=== PATIENT | female | born 1945 | race Asian ===

== ENCOUNTER → 2016-04-02 | Outpatient (CLI) | payer OTHER ==
[~2016-04-02] MED LIST: AMBIEN5 MG PO; CENTRUM SILVER1 EAC1 PO; CLARITIN10 MG PO; FOSAMAX70 MG PO; GAS-X ULTRA ST180 MG PO; KEFLEX500 MG PO; LEXAPRO10 MG PO; LISINOPRIL/HCTZ1 TA3 PO; MEDROL DOSEPAK4 MG PO; OXYCODONE5 M1 PO; PRILOSEC20 MG PO; VITAMIN D2000 IU PO; ZOFRAN4 MG PO
[2016-04-02 15:13] LABS: HEMATOCRIT 38.8 % (37.0-47.0); HEMOGLOBIN 13.2 g/dl (12.0-16.0); MEAN CELL VOLUME 83.1 fl (81.0-99.0); MEAN CORPUSCULAR HGB 28.3 pg (27.0-31.0); MEAN PLATELET VOLUME 11.1 fl (9.6-12.3); PLATELET COUNT AUTOMATED 106 10*3/uL (130-400); RED BLOOD COUNT 4.67 10*6/uL (4.10-5.10); RED CELL DISTRI WIDTH 15.2 % (0-14.5); WHITE BLOOD COUNT 15.5 10*3/uL (4.8-10.8)
[2016-04-02 15:43] LABS: ALBUMIN 2.2 gm/dl (3.1-4.5); ALKALINE PHOSPHATASE 213 U/L (45-117); BILIRUBIN, TOTAL 2.6 mg/dl (0.2-1.0); BUN 14 mg/dl (7-24); CARBON DIOXIDE 29 mmol/L (21-32); CHLORIDE 93 mmol/L (98-107); EST GLOM FILT AFRICAN AMERICAN > 60 ml/min; GLUCOSE 126 mg/dL (65-99); MAGNESIUM 2.2 mg/dL (1.5-2.1); PHOSPHOROUS 2.3 mg/dL (2.5-4.9); POTASSIUM 3.7 mmol/L (3.5-5.1); SGOT/AST 230 IU/L (3-35); SGPT/ALT 83 U/L (12-78); SODIUM 131 mmol/L (136-145); TOTAL PROTEIN 6.1 gm/dL (6.4-8.2)
[2016-04-02 16:16] LABS: LYMPHOCYTE # 0.5 10*3/uL (1.3-4.4); MONOCYTE # 1.6 10*3/uL (0.1-1.0); NEUTROPHIL # 13.5 10*3/uL (2.3-7.9); NEUTROPHILS 87 % (47-73); TOTAL CELLS COUNTED 100 #CELLS
[2016-04-02 16:18] LABS: PLATELET SUFFICIENCY LOW (NORMAL)
== END | disposition home or self-care (01) ==
LOC: LAB 14:21
PROVIDERS: Surgery Surgical Oncology
DX: C22.0 Liver cell carcinoma (principal); E83.42 Hypomagnesemia; E83.39 Other disorders of phosphorus metabolism; N17.9 Acute kidney failure, unspecified; D64.9 Anemia, unspecified

== ENCOUNTER → 2016-05-28 | Outpatient (CLI) | payer OTHER ==
[2016-05-28 09:00] LABS: BASO % 0.5 % (0.0-1.0); EOS % 0.7 % (1.0-4.0); HEMATOCRIT 42.2 % (37.0-47.0); HEMOGLOBIN 14.4 g/dl (12.0-16.0); LYMPH # 0.8 10*3/uL (1.3-4.4); LYMPH % 13.7 % (27.0-41.0); MEAN CELL VOLUME 83.9 fl (81.0-99.0); MEAN CORPUSCULAR HGB 28.6 pg (27.0-31.0); MEAN CORPUSCULAR HGB CONC 34.1 g/dl (33.0-37.0); MEAN PLATELET VOLUME 10.4 fl (9.6-12.3); MONO # 0.7 10*3/uL (0.1-1.0); MONO % 13.5 % (3.0-9.0); NEUT # 3.9 10*3/uL (2.3-7.9); NEUT % 71.4 % (47.0-73.0); PLATELET COUNT AUTOMATED 143 10*3/uL (130-400); RED BLOOD COUNT 5.03 10*6/uL (4.10-5.10); RED CELL DISTRI WIDTH 19.5 % (0-14.5); WHITE BLOOD COUNT 5.5 10*3/uL (4.8-10.8)
[2016-05-28 09:23] LABS: ALBUMIN 2.6 gm/dl (3.1-4.5); BILIRUBIN, TOTAL 1.9 mg/dl (0.2-1.0); BUN 13 mg/dl (7-24); CARBON DIOXIDE 28 mmol/L (21-32); CHLORIDE 94 mmol/L (98-107); EST GLOM FILT AFRICAN AMERICAN > 60 ml/min; GLUCOSE 124 mg/dL (65-99); MAGNESIUM 1.9 mg/dL (1.5-2.1); PHOSPHOROUS 3.4 mg/dL (2.5-4.9); POTASSIUM 3.9 mmol/L (3.5-5.1); SGOT/AST 192 IU/L (3-35); SGPT/ALT 78 U/L (12-78); SODIUM 131 mmol/L (136-145); TOTAL PROTEIN 7.7 gm/dL (6.4-8.2)
[2016-05-28 09:26] LABS: ALKALINE PHOSPHATASE 282 U/L (45-117)
== END | disposition home or self-care (01) ==
LOC: LAB 08:36
PROVIDERS: Internal Medicine Hematology & Oncology
DX: C22.0 Liver cell carcinoma (principal); N17.9 Acute kidney failure, unspecified; D64.9 Anemia, unspecified; K76.9 Liver disease, unspecified; K74.60 Unspecified cirrhosis of liver; B18.1 Chronic viral hepatitis B without delta-agent; E83.42 Hypomagnesemia; E83.39 Other disorders of phosphorus metabolism

== ENCOUNTER → 2016-06-04 | Outpatient (CLI) | payer OTHER ==
[2016-06-04 09:25] LABS: BASO % 0.6 % (0.0-1.0); EOS # 0.1 10*3/uL (0.0-0.4); EOS % 1.6 % (1.0-4.0); HEMATOCRIT 45.8 % (37.0-47.0); HEMOGLOBIN 15.3 g/dl (12.0-16.0); LYMPH # 0.8 10*3/uL (1.3-4.4); LYMPH % 15.2 % (27.0-41.0); MEAN CELL VOLUME 85.6 fl (81.0-99.0); MEAN CORPUSCULAR HGB 28.6 pg (27.0-31.0); MEAN CORPUSCULAR HGB CONC 33.4 g/dl (33.0-37.0); MEAN PLATELET VOLUME 10.1 fl (9.6-12.3); MONO # 0.7 10*3/uL (0.1-1.0); NEUT # 3.3 10*3/uL (2.3-7.9); NEUT % 67.2 % (47.0-73.0); PLATELET COUNT AUTOMATED 144 10*3/uL (130-400); RED BLOOD COUNT 5.35 10*6/uL (4.10-5.10); RED CELL DISTRI WIDTH 19.9 % (0-14.5); WHITE BLOOD COUNT 4.9 10*3/uL (4.8-10.8)
[2016-06-04 09:51] LABS: ALBUMIN 2.4 gm/dl (3.1-4.5); ALKALINE PHOSPHATASE 306 U/L (45-117); BUN 12 mg/dl (7-24); CARBON DIOXIDE 28 mmol/L (21-32); CHLORIDE 95 mmol/L (98-107); EST GLOM FILT AFRICAN AMERICAN > 60 ml/min; GLUCOSE 118 mg/dL (65-99); MAGNESIUM 1.9 mg/dL (1.5-2.1); PHOSPHOROUS 3.2 mg/dL (2.5-4.9); POTASSIUM 4.2 mmol/L (3.5-5.1); SGOT/AST 188 IU/L (3-35); SGPT/ALT 87 U/L (12-78); SODIUM 133 mmol/L (136-145); TOTAL PROTEIN 8.1 gm/dL (6.4-8.2)
== END | disposition home or self-care (01) ==
LOC: LAB 08:52
PROVIDERS: Physician Assistant Medical
DX: C22.0 Liver cell carcinoma (principal); N17.9 Acute kidney failure, unspecified; E83.42 Hypomagnesemia; E83.39 Other disorders of phosphorus metabolism; D64.9 Anemia, unspecified

== ENCOUNTER → 2016-06-11 | Outpatient (CLI) | payer OTHER ==
[2016-06-11 09:03] LABS: BASO % 0.5 % (0.0-1.0); EOS # 0.1 10*3/uL (0.0-0.4); EOS % 0.8 % (1.0-4.0); HEMOGLOBIN 15.7 g/dl (12.0-16.0); LYMPH # 0.6 10*3/uL (1.3-4.4); LYMPH % 10.8 % (27.0-41.0); MEAN CELL VOLUME 85.8 fl (81.0-99.0); MEAN CORPUSCULAR HGB 28.6 pg (27.0-31.0); MEAN CORPUSCULAR HGB CONC 33.4 g/dl (33.0-37.0); MONO # 0.7 10*3/uL (0.1-1.0); MONO % 12.1 % (3.0-9.0); NEUT # 4.5 10*3/uL (2.3-7.9); NEUT % 75.5 % (47.0-73.0); PLATELET COUNT AUTOMATED 156 10*3/uL (130-400); RED BLOOD COUNT 5.48 10*6/uL (4.10-5.10); RED CELL DISTRI WIDTH 19.8 % (0-14.5); WHITE BLOOD COUNT 5.9 10*3/uL (4.8-10.8)
[2016-06-11 09:36] LABS: ALBUMIN 2.3 gm/dl (3.1-4.5); BILIRUBIN, TOTAL 2.2 mg/dl (0.2-1.0); BUN 16 mg/dl (7-24); CARBON DIOXIDE 27 mmol/L (21-32); CHLORIDE 96 mmol/L (98-107); EST GLOM FILT AFRICAN AMERICAN > 60 ml/min; GLUCOSE 127 mg/dL (65-99); MAGNESIUM 1.8 mg/dL (1.5-2.1); PHOSPHOROUS 2.8 mg/dL (2.5-4.9); POTASSIUM 4.1 mmol/L (3.5-5.1); SGOT/AST 203 IU/L (3-35); SGPT/ALT 86 U/L (12-78); SODIUM 133 mmol/L (136-145); TOTAL PROTEIN 7.6 gm/dL (6.4-8.2)
[2016-06-11 10:14] LABS: ALKALINE PHOSPHATASE 324 U/L (45-117)
== END | disposition home or self-care (01) ==
LOC: LAB 08:28
PROVIDERS: Physician Assistant Medical
DX: C22.0 Liver cell carcinoma (principal); E83.42 Hypomagnesemia; E83.39 Other disorders of phosphorus metabolism; N17.9 Acute kidney failure, unspecified; D64.9 Anemia, unspecified

== ENCOUNTER 2016-06-14 22:06 | Inpatient (IN) | payer OTHER ==
[~2016-06-14] VITALS: Ht 152.4 cm; Wt 52.6 kg
--- NOTE | ~2016-06-14 | CON ---
[place], [place] REPORT OF CONSULTATION NAME: [facility]EN [facility]ULUAGA [facility]: [id number] UNIT #: [id number] ROOM: 407 DOCTOR[facility] BIRTHDATE[facility] [birth year] DOS: 06/15/2016 HISTORY OF PRESENT ILLNESS: The patient has presented with apparent history of hepatitis B, many decades ago known. The patient apparently developed a large mass in the liver, apparently diagnosed as carcinoma, details pathologically are not available to us. However, she has undergone radiation oncologic management seed implant, also chemotherapy through Dr. Carlos. She has developed ascites fluid, paracentesis multisession has been performed, about 3000 mL collectively has been removed. Her sonographic study of the liver does not show solid mass except a small hemangioma in the liver, nodular liver with cirrhosis is already an established diagnosis. The patient has been doing well. PAST MEDICAL HISTORY: Cirrhosis, ascites, pleural effusion, history of hepatitis C, hypertension, liver CA, protein malnutrition. PAST SURGICAL HISTORY: Bilateral hip prosthesis. SOCIAL HISTORY: Nonsmoker, nonalcohol consumer. FAMILY HISTORY: Noncontributory. ALLERGIES: No known medication. MEDICATIONS: List is known. REVIEW OF SYSTEMS: No hematemesis. No shortness of breath, no chest pain. Digestive system, no acute diarrhea, constipation or concern except liver CA, detail is not known. PHYSICAL EXAMINATION: VITAL SIGNS: Frail patient. HEENT: Head normocephalic, nontraumatic. Mouth and buccal mucosa benign. NECK: Supple, no thyromegaly. CHEST: Symmetric anatomy, equal expansion. HEART: Normal sinus rhythm. No gallop, no murmur. ABDOMEN: Soft. No hepato-organomegaly. No pulsatile mass. No rebound tenderness. EXTREMITIES: No cyanosis. No pedal edema. NEUROLOGIC: Alert and oriented to time, place and person. IMPRESSION: History of liver CA, status post seed implant, status-post chemotherapy, history of hepatitis B, underlying disease, ascites, paracentesis, possible portal hypertension as well as known systemic hypertension. PLAN AND DISCUSSION: As far as hyperammonemia is concerned, she deserves to be on a dose of lactulose of 30 grams a day to assure we keep the serum ammonia under check and not to allow that to increase to a point where she becomes encephalopathic, otherwise curiosity of finding old records to see what kind of tissue diagnosis she has. If we know that truly the size of the mass how large it has been compared to the present time, which is nil clinical [place], [place] REPORT OF CONSULTATION NAME: KEN ZULUAGA UNIT #: [id number] ROOM: 407 DOCTOR: LINDA RAI,MODE BIRTHDATE: [birth year] significant response otherwise. The patient's diet to remain on low salt. Activity as tolerated. Retrospectively, we have found on the old records a 9.1 heterogenous mass in the inferior right hepatic lobe, which is old and belong to the date February 16, 2016, which at the present time has not been reported in the sonogram unless we have a comparative CT to compare that day with today's data. We are going to do that in here. Thank you very much indeed. Sincerely, MODE MCKEON MD CM:CONSTR:REPORT OF CONSULTATION 1640 06/16/16 0941 interface
[2016-06-14 22:14] VITALS: BP 113/64
[2016-06-14 22:31] VITALS: BP 125/68
[2016-06-14 22:54] LABS: BASO % 0.3 % (0.0-1.0); EOS % 0.5 % (1.0-4.0); HEMATOCRIT 43.7 % (37.0-47.0); HEMOGLOBIN 14.9 g/dl (12.0-16.0); LYMPH # 0.7 10*3/uL (1.3-4.4); LYMPH % 8.7 % (27.0-41.0); MEAN CELL VOLUME 85.5 fl (81.0-99.0); MEAN CORPUSCULAR HGB 29.2 pg (27.0-31.0); MEAN CORPUSCULAR HGB CONC 34.1 g/dl (33.0-37.0); MEAN PLATELET VOLUME 9.9 fl (9.6-12.3); MONO % 12.8 % (3.0-9.0); NEUT # 6.1 10*3/uL (2.3-7.9); NEUT % 77.4 % (47.0-73.0); PLATELET COUNT AUTOMATED 135 10*3/uL (130-400); RED BLOOD COUNT 5.11 10*6/uL (4.10-5.10); WHITE BLOOD COUNT 7.8 10*3/uL (4.8-10.8)
[2016-06-14 23:04] LABS: INTERNATIONAL NORM RATIO 1.2 (2.0-3.5); PROTHROMBIN TIME 12.5 SECONDS (9.0-12.4)
[2016-06-14 23:11] LABS: ALBUMIN 2.2 gm/dl (3.1-4.5); ALKALINE PHOSPHATASE 309 U/L (45-117); BILIRUBIN, TOTAL 2.4 mg/dl (0.2-1.0); BUN 18 mg/dl (7-24); C-REACTIVE PROTEIN 3.84 MG/DL (0-0.3); CARBON DIOXIDE 22 mmol/L (21-32); CHLORIDE 98 mmol/L (98-107); CKMB 1.1 ng/ml (0.5-3.6); CPK 35 U/L (26-192); EST GLOM FILT AFRICAN AMERICAN > 60 ml/min; GLUCOSE 96 mg/dL (65-99); MAGNESIUM 1.9 mg/dL (1.5-2.1); SGOT/AST 216 IU/L (3-35); SGPT/ALT 82 U/L (12-78); SODIUM 130 mmol/L (136-145); TOTAL PROTEIN 7.2 gm/dL (6.4-8.2)
[2016-06-14 23:14] LABS: TROPONIN I < 0.015 ng/ml (<0.045)
[2016-06-14 23:57] VITALS: BP 124/68
[2016-06-15] VITALS (7 sets, daily range): BP systolic 92–133; BP diastolic 60–76
[2016-06-15 00:10] LABS: BILIRUBIN 1+ (NEGATIVE); BLOOD NEGATIVE (NEGATIVE); CLARITY SL CLOUDY (CLEAR); COLOR YELLOW (YELLOW); GLUCOSE NEGATIVE (NEGATIVE); KETONE 1+ (NEGATIVE); LEUKO ESTERASE NEGATIVE (NEGATIVE); NITRITE POSITIVE (NEGATIVE); PH 6.5 (5.0-9.0); PROTEIN TRACE (NEGATIVE)
[2016-06-15 00:17] LABS: BACTERIA 4+; URINE REFLEX COMMENT YES (NO)
[2016-06-15 06:12] LABS: BASO % 0.5 % (0.0-1.0); EOS # 0.1 10*3/uL (0.0-0.4); EOS % 0.9 % (1.0-4.0); HEMATOCRIT 45.4 % (37.0-47.0); HEMOGLOBIN 15.5 g/dl (12.0-16.0); LYMPH # 1.1 10*3/uL (1.3-4.4); LYMPH % 13.1 % (27.0-41.0); MEAN CORPUSCULAR HGB CONC 34.1 g/dl (33.0-37.0); MEAN PLATELET VOLUME 10.5 fl (9.6-12.3); NEUT # 6.5 10*3/uL (2.3-7.9); PLATELET COUNT AUTOMATED 157 10*3/uL (130-400); RED BLOOD COUNT 5.34 10*6/uL (4.10-5.10); RED CELL DISTRI WIDTH 20.1 % (0-14.5); WHITE BLOOD COUNT 8.7 10*3/uL (4.8-10.8)
[2016-06-15 06:40] LABS: ALBUMIN 2.3 gm/dl (3.1-4.5); ALKALINE PHOSPHATASE 308 U/L (45-117); BILIRUBIN, TOTAL 2.5 mg/dl (0.2-1.0); BUN 17 mg/dl (7-24); CARBON DIOXIDE 23 mmol/L (21-32); CHLORIDE 97 mmol/L (98-107); EST GLOM FILT AFRICAN AMERICAN > 60 ml/min; FREE T4 1.72 ng/dl (0.76-1.46); GLUCOSE 79 mg/dL (65-99); MAGNESIUM 1.8 mg/dL (1.5-2.1); PHOSPHOROUS 3.4 mg/dL (2.5-4.9); POTASSIUM 3.7 mmol/L (3.5-5.1); SGOT/AST 209 IU/L (3-35); SGPT/ALT 83 U/L (12-78); SODIUM 131 mmol/L (136-145); TOTAL PROTEIN 7.3 gm/dL (6.4-8.2)
[2016-06-15 06:46] LABS: INTERNATIONAL NORM RATIO 1.2 (2.0-3.5); PROTHROMBIN TIME 12.3 SECONDS (9.0-12.4)
[2016-06-15 07:11] LABS: HEMOGLOBIN A1c 5.3 % (4.8-5.6)
[2016-06-15 09:25] LABS: FOLIC ACID 14.54 ng/mL (>5.38)
[2016-06-15] MEDS ORDERED: ALDACTONE50 M1 PO (09:28)
[2016-06-16] VITALS: BP 114/66
[2016-06-16 07:20] LABS: ALBUMIN 3.6 gm/dl (3.1-4.5); BUN 21 mg/dl (7-24); CARBON DIOXIDE 26 mmol/L (21-32); CHLORIDE 94 mmol/L (98-107); EST GLOM FILT AFRICAN AMERICAN > 60 ml/min; GLUCOSE 120 mg/dL (65-99); POTASSIUM 3.7 mmol/L (3.5-5.1); SGOT/AST 175 IU/L (3-35); SGPT/ALT 71 U/L (12-78); SODIUM 130 mmol/L (136-145)
[2016-06-16 07:22] LABS: ALKALINE PHOSPHATASE 260 U/L (45-117); BILIRUBIN, TOTAL 2.5 mg/dl (0.2-1.0); TOTAL PROTEIN 7.7 gm/dL (6.4-8.2)
[2016-06-16] MEDS ORDERED: FOSAMAX70 M1 PO (11:34)
[2016-06-16] MEDS ORDERED: LISINOPRIL AND1 TAB PO (11:35)
[2016-06-16 12:00] VITALS: BP 118/66
[2016-06-16 16:00] VITALS: BP 118/60
[2016-06-16 20:00] VITALS: BP 116/66
[2016-06-17] VITALS: BP 104/67
[2016-06-17 07:38] LABS: CHLORIDE 95 mmol/L (98-107); POTASSIUM 3.4 mmol/L (3.5-5.1); SODIUM 132 mmol/L (136-145)
[2016-06-17 07:44] LABS: ALBUMIN 3.6 gm/dl (3.1-4.5); ALKALINE PHOSPHATASE 292 U/L (45-117); BUN 21 mg/dl (7-24); CARBON DIOXIDE 26 mmol/L (21-32); EST GLOM FILT AFRICAN AMERICAN > 60 ml/min; GLUCOSE 104 mg/dL (65-99); SGOT/AST 191 IU/L (3-35); SGPT/ALT 77 U/L (12-78); TOTAL PROTEIN 7.2 gm/dL (6.4-8.2)
[2016-06-17 08:00] VITALS: BP 114/66
[2016-06-17] MEDS ORDERED: LACTULOSE20 GM/30 M PO (11:24)
[2016-06-17] MEDS ORDERED: ALENDRONATE SOD70 M1 PO ×2 (11:24→11:25)
== END 2016-06-17 12:58 | disposition home or self-care (01) | DRG 435 ==
LOC: ED 22:06 → EDHOLD 06-15 00:20 → 4E 06-15 00:20
PROVIDERS: Family Medicine; Hospitalist; Internal Medicine Hospice and Palliative Medicine; Student in an Organized Health Care Education/Training Program
PROC: 0W9G3ZZ Drainage of Peritoneal Cavity, Percutaneous Approach (ICD-10-PCS; principal; 2016-06-15)
DX: C22.0 Liver cell carcinoma (principal); E43 Unspecified severe protein-calorie malnutrition; R18.0 Malignant ascites; J90 Pleural effusion, not elsewhere classified; N39.0 Urinary tract infection, site not specified; E87.1 Hypo-osmolality and hyponatremia; B18.1 Chronic viral hepatitis B without delta-agent; R74.0 Nonspecific elevation of levels of transaminase and lactic acid dehydrogenase [LDH]; R00.0 Tachycardia, unspecified; I10 Essential (primary) hypertension; Z96.643 Presence of artificial hip joint, bilateral; Z79.899 Other long term (current) drug therapy; Z83.3 Family history of diabetes mellitus; Z92.21 Personal history of antineoplastic chemotherapy; Z68.22 Body mass index [BMI] 22.0-22.9, adult

== ENCOUNTER 2016-06-22 10:49 | Inpatient (IN) | payer OTHER ==
[2016-06-22] VITALS (7 sets, daily range): BP systolic 122–136; BP diastolic 69–79
[~2016-06-22] VITALS: Ht 152.4 cm; Wt 51.4 kg
[~2016-06-22 10:49] MED LIST changes: +ALDACTONE50 M1 PO; +ALENDRONATE SOD70 M1 PO; +FOSAMAX70 M1 PO; +LACTULOSE20 GM/30 M PO; +LISINOPRIL AND1 TAB PO
[2016-06-22 11:30] LABS: BASO % 0.6 % (0.0-1.0); EOS # 0.1 10*3/uL (0.0-0.4); HEMATOCRIT 44.7 % (37.0-47.0); HEMOGLOBIN 15.2 g/dl (12.0-16.0); LYMPH # 0.5 10*3/uL (1.3-4.4); MEAN CELL VOLUME 86.6 fl (81.0-99.0); MEAN CORPUSCULAR HGB 29.5 pg (27.0-31.0); MONO # 0.8 10*3/uL (0.1-1.0); MONO % 11.1 % (3.0-9.0); NEUT # 5.8 10*3/uL (2.3-7.9); PLATELET COUNT AUTOMATED 150 10*3/uL (130-400); RED BLOOD COUNT 5.16 10*6/uL (4.10-5.10); RED CELL DISTRI WIDTH 20.6 % (0-14.5); WHITE BLOOD COUNT 7.3 10*3/uL (4.8-10.8)
[2016-06-22 11:36] LABS: BILIRUBIN 2+ (NEGATIVE); BLOOD NEGATIVE (NEGATIVE); CLARITY CLEAR (CLEAR); COLOR YELLOW (YELLOW); GLUCOSE NEGATIVE (NEGATIVE); KETONE 1+ (NEGATIVE); LEUKO ESTERASE NEGATIVE (NEGATIVE); NITRITE NEGATIVE (NEGATIVE); PH 5.5 (5.0-9.0); PROTEIN TRACE (NEGATIVE); SPECIFIC GRAVITY >= 1.030 (1.005-1.030)
[2016-06-22 11:39] LABS: INTERNATIONAL NORM RATIO 1.2 (2.0-3.5)
[2016-06-22 11:42] LABS: BACTERIA TRACE; MUCOUS 2+
[2016-06-22 11:44] LABS: EPITHELIAL CELLS 0-2; HYALINE CAST 0-2; URINE REFLEX COMMENT NO (NO)
[2016-06-22 11:46] LABS: ALBUMIN 2.7 gm/dl (3.1-4.5); ALKALINE PHOSPHATASE 378 U/L (45-117); BILIRUBIN, TOTAL 3.8 mg/dl (0.2-1.0); BUN 20 mg/dl (7-24); C-REACTIVE PROTEIN 3.53 MG/DL (0-0.3); CARBON DIOXIDE 22 mmol/L (21-32); CHLORIDE 94 mmol/L (98-107); CKMB 0.9 ng/ml (0.5-3.6); CPK 29 U/L (26-192); EST GLOM FILT AFRICAN AMERICAN > 60 ml/min; GLUCOSE 82 mg/dL (65-99); MAGNESIUM 2.1 mg/dL (1.5-2.1); POTASSIUM 4.6 mmol/L (3.5-5.1); SGOT/AST 244 IU/L (3-35); SGPT/ALT 99 U/L (12-78); SODIUM 128 mmol/L (136-145)
[2016-06-22 11:51] LABS: TROPONIN I < 0.015 ng/ml (<0.045)
[2016-06-22] MEDS ORDERED: NEXAVAR200 M1 PO (14:12)
[2016-06-22] MEDS ORDERED: LACTULOSE20 GM/30 M PO (14:59)
[2016-06-23] VITALS: BP 140/80
[2016-06-23 07:08] LABS: BASO % 0.4 % (0.0-1.0); EOS # 0.1 10*3/uL (0.0-0.4); EOS % 1.1 % (1.0-4.0); HEMOGLOBIN 15.4 g/dl (12.0-16.0); LYMPH # 0.5 10*3/uL (1.3-4.4); LYMPH % 6.9 % (27.0-41.0); MEAN CELL VOLUME 85.9 fl (81.0-99.0); MEAN CORPUSCULAR HGB 29.4 pg (27.0-31.0); MEAN CORPUSCULAR HGB CONC 34.2 g/dl (33.0-37.0); MONO # 0.9 10*3/uL (0.1-1.0); MONO % 12.6 % (3.0-9.0); NEUT # 5.9 10*3/uL (2.3-7.9); NEUT % 78.5 % (47.0-73.0); PLATELET COUNT AUTOMATED 158 10*3/uL (130-400); RED BLOOD COUNT 5.24 10*6/uL (4.10-5.10); RED CELL DISTRI WIDTH 20.6 % (0-14.5); WHITE BLOOD COUNT 7.5 10*3/uL (4.8-10.8)
[2016-06-23 07:40] LABS: BUN 22 mg/dl (7-24); CARBON DIOXIDE 26 mmol/L (21-32); CHLORIDE 94 mmol/L (98-107); EST GLOM FILT AFRICAN AMERICAN > 60 ml/min; GLUCOSE 61 mg/dL (65-99); POTASSIUM 4.5 mmol/L (3.5-5.1); SODIUM 129 mmol/L (136-145)
[2016-06-23 08:00] VITALS: BP 118/76
[2016-06-23 12:00] VITALS: BP 132/71
[2016-06-23 16:00] VITALS: BP 123/73
== END 2016-06-23 21:02 | disposition short-term general hospital (02) | DRG 689 ==
LOC: ED 10:49 → EDHOLD 12:55 → 5E 13:37
PROVIDERS: Emergency Medicine; Internal Medicine
DX: N30.00 Acute cystitis without hematuria (principal); E43 Unspecified severe protein-calorie malnutrition; R06.00 Dyspnea, unspecified; R18.8 Other ascites; E87.1 Hypo-osmolality and hyponatremia; I10 Essential (primary) hypertension; Z86.19 Personal history of other infectious and parasitic diseases; Z79.899 Other long term (current) drug therapy; Z79.1 Long term (current) use of non-steroidal anti-inflammatories (NSAID)